=== PATIENT | male | born 1980 | race Two or more races ===

== ENCOUNTER 2024-05-24 10:32 | Emergency (ER) | payer OTHER ==
[~2024-05-24] VITALS: Ht 170.2 cm; Wt 81.4 kg
[2024-05-24 11:04] VITALS: TEMP 98.1
[2024-05-24] MEDS ORDERED: IBUPROFEN 600 MG TABLET ONE ×2 (11:27→11:29)
[2024-05-24] MEDS: IBUPROFEN 600 MG TABLET PO ONE (11:29)
[2024-05-24 11:36] LABS: APPEARANCE,URINE Clear (CLEAR); BILIRUBIN,URINE Negative (NEGATIVE); BLOOD, URINE Negative Ery/uL (NEGATIVE); COLOR,URINE YELLOW (YELLOW); KETONES,URINE Negative (NEGATIVE); LEUKOCYTE ESTERASE ,URINE Negative (NEGATIVE); NITRITE, URINE Negative (NEGATIVE); PH,URINE 8.5 (5.0-8.0); PROTEIN,URINE Negative (NEGATIVE); UGLUCOSE Negative (NEGATIVE); UROBILINOGEN,URINE 0.2 EU/dL (0.2)
[2024-05-24 13:34] VITALS: BP 129/78; O2SAT 94
== END 2024-05-24 12:35 | disposition home or self-care (01) ==
LOC: ER 11:05
DX: N50.812 Left testicular pain (principal); Z90.79 Acquired absence of other genital organ(s)
CPT/HCPCS: 76870-TC

== ENCOUNTER 2024-06-08 15:45 | Emergency (ER) | payer OTHER ==
[~2024-06-08] VITALS: Ht 170.2 cm; Wt 78.0 kg
[2024-06-08] MEDS ORDERED: DOXYCYCLINE HYCLATE (100 MG) 100 MG TABLET ONE (17:53)
[2024-06-08] MEDS ORDERED: CEFTRIAXONE 1GM BAG (ER ONLY) 50 ML IV ONE (17:53)
[2024-06-08] MEDS: CEFTRIAXONE 500 MG VIAL IM ONE (18:08)
[2024-06-08] MEDS: DOXYCYCLINE HYCLATE (100 MG) 100 MG TABLET PO ONE (18:08)
[2024-06-08] MEDS ORDERED: CYCL5TAB PO (19:46)
[2024-06-08] MEDS ORDERED: KETO10TA2 PO (19:46)
[2024-06-08 19:55] VITALS: BP 132/78; TEMP 98.4; O2SAT 99
== END 2024-06-08 19:56 | disposition home or self-care (01) ==
LOC: ER 15:45
DX: N50.812 Left testicular pain (principal)
CPT/HCPCS: 99285; 96365; 76870; J0696